=== PATIENT | male | born 1965 | race Caucasian/White ===

== ENCOUNTER 2020-10-06 18:02 | Emergency (ER) | payer MEDICARE, SELFPAY ==
--- NOTE | ~2020-10-06 | CT_ITS ---
EXAMINATION: CT abdomen pelvis w con DATE: 10/06/2020 20:37 INDICATION: Epigastric abdominal pain. Vomiting. TECHNIQUE: Computed tomography (CT) of the abdomen and pelvis was performed with 100 mL Omnipaque 350 intravenous contrast. Automated exposure control and iterative reconstruction technique were employe d. The dose-length product was 876.92 mGy-cm. COMPARISON: None. FINDINGS: The visualized portions of the lung bases demonstrate mild atelectasis. No pleural effusion . The heart size is normal. There are changes of coronary bypass grafting. The liver, gallbladder, sp caren, adrenal glands, and kidneys are normal. There is fat stranding around the pancreas, consistent with acute interstitial pancreatitis. There is diverticulosis of the colon without evidence of divert iculitis. The appendix is normal. There are no pathologically enlarged lymph nodes. There is no free intraperitoneal fluid. There is mild thoracolumbar spondylosis. IMPRESSION: 1. Mild findings of acute interstitial pancreatitis. Reviewed, dictated and finalized at location A.
[2020-10-06 18:10] VITALS: BP 180/110; PULSE 85; RESP 20; TEMP 36.2; O2SAT 98
--- NOTE | 2020-10-06 18:46 | ED.ABDPAIN ---
HPI - Abdominal Pain General Chief Complaint: Abdominal Pain Stated Complaint: pancreatitis Time Seen by Provider: 10/06/20 18:48 Source: patient Mode of arrival: ambulatory Limitations: no limitations History of Present Illness HPI narrative: 55-year-old man with a history of pancreatitis comes in today complaining of epigastric pain that radiates around to his back that has been present for several weeks. Patient states that he has had nausea but no vomiting. He did eat some seafood today. He denies any blood in his stools, black stools, dysuria, hematuria, syncope, chest pain or trouble breathing. He states he has had episodes in the past that responded to pain medication. MD elicited complaint: abdominal pain Pertinent past history: other ( Pancreatitis) Onset (ago): week(s) (2-3) Pain Consistency: constant Location: epigastric Severity: severe Quality: sharp Radiation: back Migration to: no migration Exacerbating factors: nothing Relieving factors: nothing Associated symptoms: nausea Related Data Home Medications Medication Instructions Recorded Confirmed atorvastatin 80 mg PO HS 02/24/19 10/06/20 clopidogrel [Plavix] 75 mg PO DAILY 02/24/19 10/06/20 insulin glargine [Lantus U-100 40 unit SUBCUT 02/24/19 10/06/20 Insulin] insulin lispro [Humalog U-100 22 unit SUBCUT 02/24/19 10/06/20 Insulin] isosorbide mononitrate 60 mg PO DAILY 02/24/19 10/06/20 lisinopril 40 mg PO HS 02/24/19 10/06/20 metoprolol tartrate 25 mg PO DAILY 02/24/19 10/06/20 sertraline 50 mg PO DAILY 02/24/19 10/06/20 trazodone 100 mg PO HS 02/24/19 10/06/20 Allergies Allergy/AdvReac Type Severity Reaction Status Date / Time No Known Allergies Allergy Verified 03/16/19 09:14 Review of Systems Review of Systems: All systems reviewed & are unremarkable except as noted in HPI and below Constitutional: Constitutional: Denies chills, Denies fever(s) and Denies weakness ENT: Denies nasal congestion and Denies sore throat Cardiovascular: Cardiovascular: Denies chest pain and Denies radiating jaw, neck or arm pain Respiratory: Respiratory: Denies cough, Denies dyspnea and Denies wheezing Gastrointestinal: Gastrointestinal: Reports abdominal pain, Reports nausea and Denies vomiting Genitourinary: Genitourinary: Denies dysuria and Denies urinary frequency Musculoskeletal: Musculoskeletal: Denies back pain, Denies arthralgias and Denies joint swelling Integumentary/Breasts: Skin/Breast: Denies pruritus, Denies erythema and Denies rash Neurologic: Denies vertigo, Denies dizziness and Denies syncope Hematologic/Lymphatic: Hematologic/Lymphatic: Denies easy bleeding and Denies easy bruising Allergic/Immunologic: Allergic/Immunologic: Denies lip swelling and Denies throat swelling PMFSH Past Medical History Medical History Diabetes mellitus Hypertension Myocardial infarction Pancreatitis Surgical History Surgical History S/P CABG x 2 Social History Social History (Updated 10/06/20 @ 18:56 by Schuyler Palmer MD) Smoking status: Current every day smoker Alcohol intake: former Substance use: never Living arrangements: with family Exam Const: General: healthy appearing and alert Orientation/consciousness: patient oriented x3 Limitations: no limitations Other: moderate to severe acute distress. HENMT: Head: normal to inspection Ears: external ears normal, TM's normal bilaterally and EAC's normal General nose exam: Normal nares present Face and sinus: normal facial exam Mouth: Yes moist mucous membranes Throat: posterior oropharynx normal Eyes: Conjunctivae: conjunctivae normal Pupils: Equal, round and reactive pupils present EOM: EOMs intact bilaterally Resp: Effort & Inspection: normal respiratory effort and not labored Auscultation: clear to auscultation bilaterally, no rales, no rho
[2020-10-06 18:53] VITALS: BP 190/110; RESP 20; O2SAT 87
[2020-10-06] MEDS: ONDANSETRON INJ 4 MG/2 ML VIAL IV PUSH (19:02)
[2020-10-06] MEDS: HYDROmorphone HCL INJ (*CRX) 2 MG/ML VIAL 1 MG IV PUSH (19:02)
[2020-10-06] MEDS: SODIUM CHLORIDE 0.9% IV 1,000 ML 999 ML IV CONT (19:02)
[2020-10-06 19:16] LABS: Basophils Absolute Auto 0.06 K/mm3 (0.00-0.10); Basophils Percent Auto 0.7 % (0.0-1.0); Eosinophils Absolute Auto 0.11 K/mm3 (0.02-0.50); Eosinophils Percent Auto 1.2 % (1.0-6.0); Immature Granulocyte Absolute 0.02 K/mm3 (0.00-0.00); Immature Granulocyte Percent A 0.2 % (0.0-0.0); Lymphocytes Absolute Auto 2.99 K/mm3 (1.10-4.50); Lymphocytes Percent Auto 33.6 % (18.0-42.0); Mean Corpuscular HGB Conc 34.7 g/dL (32.0-36.0); Mean Corpuscular Hemoglobin 32.5 pg (27.0-31.0); Mean Corpuscular Volume 93.7 fL (78.0-102.0); Mean Platelet Volume 10.9 fl (8.7-11.0); Monocytes Absolute Auto 0.76 K/mm3 (0.10-0.90); Monocytes Percent Auto 8.5 % (2.0-11.0); Neutrophils Percent Auto 55.8 % (50.0-70.0); Platelet Count Result 186 K/mm3 (150-420); Red Blood Count 5.23 M/mm3 (4.70-6.10); White Blood Count 8.9 K/mm3 (4.8-10.8)
[2020-10-06 19:29] LABS: Alanine Aminotransferase 29 U/L (16-63); Albumin Level 3.7 g/dL (3.4-5.0); Alkaline Phosphatase 101 U/L (46-116); Anion Gap 14 mmol/L (8-16); Aspartate Amino Transferase < 10 U/L (15-37); Bilirubin,Total 0.4 mg/dL (0.00-1.00); Blood Urea Nitrogen 9 mg/dL (7-18); Calcium 8.6 mg/dL (8.5-10.1); Carbon Dioxide 24 mmol/L (21-32); Chloride 99 mmol/L (98-108); Estimated CRCL calculation 107 ml/min; Estimated Glomerular Filt Rate > 60; Glucose 284 mg/dL (70-99); Lipase 326 U/L (73-393); Osmolality Calculated 292 mOsm/kg (285-295); Potassium 4.3 mmol/L (3.5-5.1); Sodium 137 mmol/L (136-145); Total Protein 7.4 g/dL (6.4-8.2)
[2020-10-06 19:34] LABS: Lactic Acid Reflex 1.2 mmol/L (0.4-2.0)
[2020-10-06 19:35] VITALS: BP 172/98
--- NOTE | 2020-10-06 19:49 | PC.NURSE ---
pt resting per cot, playing game on phone. remains pain free at this time
[2020-10-06 20:55] VITALS: BP 168/82; PULSE 74; RESP 20; TEMP 36.9; O2SAT 94
== END 2020-10-06 21:00 | disposition home or self-care (01) ==
PROVIDERS: Emergency Provider Emergency Medicine; PCP Physician Assistant
DX: K85.90 Acute pancreatitis without necrosis or infection, unspecified (principal); E11.9 Type 2 diabetes mellitus without complications; I10 Essential (primary) hypertension; F17.200 Nicotine dependence, unspecified, uncomplicated
CPT/HCPCS: 36415; 74177; 80053; 83605; 83690; 85025; 96361; 96374; 96375; 99283; 99284; J1170; J2405; J7030; Q9967

== ENCOUNTER 2022-06-21 13:43 | Emergency (ER) | payer MEDICARE, SELFPAY ==
[2022-06-21 13:43] VITALS: BP 136/71; PULSE 84; RESP 16; TEMP 36.4; O2SAT 98
[2022-06-21 13:50] VITALS: BP 136/71; PULSE 84; RESP 16; TEMP 36.4; O2SAT 98
--- NOTE | 2022-06-21 14:18 | ED.SKABFB ---
HPI - Skin/Abscess/Foreign Bdy General Chief complaint: Skin/Abscess/Foreign Body Stated complaint: abscess Time Seen by Provider: 06/21/22 13:50 Source: patient and RN notes reviewed Mode of arrival: ambulatory Limitations: no limitations History of Present Illness complaint: abscess/boil Onset (ago): week(s) (1-2) Location: buttocks (left) Severity: moderate Quality: aching, dull and constant Pain Consistency: constant Relieving factors: rest Exacerbating factors: palpation and movement Context: none Associated symptoms: denies other symptoms Treatments prior to arrival: none Related Data Home Medications Medication Instructions Recorded Confirmed atorvastatin 80 mg tablet 80 mg PO HS 02/24/19 10/06/20 clopidogrel 75 mg tablet (Plavix) 75 mg PO DAILY 02/24/19 10/06/20 insulin glargine 100 unit/mL 40 unit subcut HS 02/24/19 10/06/20 subcutaneous solution (Lantus U-100 Insulin) insulin lispro 100 unit/mL 22 unit subcut 02/24/19 10/06/20 subcutaneous solution (Humalog U-100 Insulin) isosorbide mononitrate 60 mg 60 mg PO DAILY 02/24/19 10/06/20 tablet,extended release 24 hr lisinopril 40 mg tablet 40 mg PO HS 02/24/19 10/06/20 metoprolol tartrate 25 mg tablet 25 mg PO DAILY 02/24/19 10/06/20 sertraline 50 mg tablet 50 mg PO DAILY 02/24/19 10/06/20 trazodone 100 mg tablet 100 mg PO HS 02/24/19 10/06/20 Allergies Allergy/AdvReac Type Severity Reaction Status Date / Time No Known Allergies Allergy Verified 06/21/22 13:49 Review of Systems Review of Systems: All systems reviewed & are unremarkable except as noted in HPI and below Constitutional: Constitutional: Denies chills and Denies fever(s) PMFSH Past Medical History Medical History (Updated 06/21/22 @ 14:44 by Arsenio Savage MD) COPD (chronic obstructive pulmonary disease) Diabetes mellitus Hypertension Myocardial infarction Pancreatitis Surgical History Surgical History S/P CABG x 2 Social History Social History (Updated 03/12/23 @ 14:23 by Arsenio Savage MD) Smoking packs per day: 1 Smoking cigarettes per day: 20.0 Smoking status: Current every day smoker Tobacco type: cigarettes Alcohol intake: former Substance use: never Living arrangements: with family Exam Const: General: healthy appearing, no acute distress and alert Nutritional Appearance: well nourished Orientation/consciousness: patient oriented x3 Limitations: no limitations HENMT: Head: normal to inspection Ears: external ears normal Face/Nose/Sinus: Normal external nose present Face and sinus: normal facial exam Mouth: Yes moist mucous membranes Eyes: Conjunctivae: conjunctivae normal Pupils: Equal, round and reactive pupils present EOM: EOMs intact bilaterally Neck: Neck: normal visual inspection Resp: Effort & Inspection: normal respiratory effort Auscultation: clear to auscultation bilaterally Cardio: Rate: regular rate Rhythm: regular rhythm GI: Auscultation: normal bowel sounds Back/Spine/Pelvis: Cervical Spine: cervical ROM normal Thoracic/Lumbar Spine: thoraco-lumbar ROM normal Skin: General skin exam: normal color Lesions: lesion noted pustule left buttock size (4 cm), consistency soft and fluctuant and tender Rashes: no rashes Neuro: General: patient oriented x3, moves all extremities, no focal motor deficits and CN's II-XI intact bilaterally Speech: normal speech Gait exam (Neuro): Normal gait present Extrem: General: normal to inspection and no clubbing, cyanosis or edema Psych: Mental Status: mental status grossly normal Affect: normal affect Attitude: cooperative Course Vital Signs Vital signs: Vital Signs Temperature 36.4 C L 06/21/22 13:43 Pulse Rate 84 06/21/22 13:43 Respiratory Rate 16 06/21/22 13:43 Blood Pressure 136/71 06/21/22 13:43 Pulse Oximetry 98 06/21/22 13:43 Oxygen Delivery Room Air 06/21/22 13:43 Tempera
[2022-06-21 14:49] VITALS: BP 129/74; PULSE 79; RESP 16; TEMP 36.5; O2SAT 99
[2022-06-21] MEDS: LIDOCAINE HCL 1% LOCAL INJ 10 ML VIAL INFILTRATE (14:49)
== END 2022-06-21 14:51 | disposition home or self-care (01) ==
PROVIDERS: Emergency Provider Emergency Medicine; PCP Physician Assistant
DX: L02.31 Cutaneous abscess of buttock (principal); E11.9 Type 2 diabetes mellitus without complications; I10 Essential (primary) hypertension; I25.2 Old myocardial infarction; F17.210 Nicotine dependence, cigarettes, uncomplicated
CPT/HCPCS: 10060; 10160; 99283